=== PATIENT | female | born 1980 | race Caucasian/White ===

== ENCOUNTER 2023-08-28 09:00 | Outpatient (CLI) | payer BC, SELFPAY ==
--- NOTE | 2023-08-28 09:15 | CRLHL7_ITS ---
For Patients: As a result of the Century Cures Act, medical imaging exams and procedure reports are released immediately into your electronic medical record. You may view this report before your referring provider. If you have questions, please contact your health care provider. INDICATION: ABNORMAL UTERINE AND VAGINAL BLEEDING COMPARISON: none TECHNIQUE: 2D mi scale and color Doppler images were acquired of the pelvis using a transabdominal and transvaginal approach. FINDINGS: Sonographic images demonstrate a normal size and smooth outer contour of the uterus. Uterus measures 8.6 cm in length by 4.0 cm in AP diameter by 4.2 cm in transverse dimension. The myometrium has a normal uniform echotexture. The endometrial lining appears normal and measures 4 mm in composite thickness. The right ovary measures 3.3 x 2.0 x 2.7 cm in size and the left ovary measures 2.8 x 1.9 x 1.7 cm. The ovaries demonstrate normal arterial and venous blood flow on color Doppler analysis. There are no suspicious fluid collections within the cul-de-sac. IMPRESSION: Normal pelvic ultrasound. Dictated by Talib Welsh MD @ 08/28/2023 9:53:25 AM (Electronically Signed)
== END 2023-08-28 09:01 | disposition home or self-care (01) ==
LOC: US 09:00
PROVIDERS: PCP Family Medicine; Visit Provider Obstetrics & Gynecology
DX: N93.9 Abnormal uterine and vaginal bleeding, unspecified (principal)
CPT/HCPCS: 76830; 76856

== ENCOUNTER 2023-10-06 09:35 | Day surgery (SDC) | payer BC, SELFPAY ==
[2023-10-06] VITALS (18 sets, daily range): BP systolic 98–131; BP diastolic 55–100; PULSE 61–88; RESP 12–17; TEMP 35.7–36.6; O2SAT 93–100; BMI 21.6
[2023-10-06] MEDS: LACTATED RINGERS 1000 ML 1,000 ML 100 ML IV ×2 (09:55→12:03)
[2023-10-06] MEDS: SODIUM CHLORIDE 0.9 % (FLUSH) 10 ML SYRINGE IVF ×3 (09:55→23:16)
[2023-10-06 10:15] LABS: Ur HCG Qualitative* Negative (Negative)
[2023-10-06 10:17] LABS: Hemoglobin* 13.6 gm/dL (12.0-16.0)
[2023-10-06 10:32] LABS: Creatinine* 0.6 mg/dL (0.5-1.5); Est. Creatinine Clearance* 101.04; Estimated Glomerular Filt Rate 115 ml/min
--- NOTE | 2023-10-06 10:34 | P.GYNHP_ITS ---
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 Plan to proceed with total vaginal hysterectomy, bilateral salpingectomy and cystoscopy today. Please see my consult note for complete details. She is s/p H&P with pre-op clearnace by Dr. England on 09/22. Past medical history notable for F5L heterozygosity with history of an extensive lower extremity SVT while on OCPs. She notes no interval updates to her health history. No chest pain, dyspnea, dizziness/lightheadedness, nausea/vomiting, bowel or bladder concerns. LMP 10/05/23. Her PCP did not make recommendations regarding perioperative ACO. I did calculate a Caprini score, for which Ms. Chauhan is high risk for VTE. In light of this, I recommend mechanical and pharmacologic prophylaxis intra-op (SCD, heparin) and post-procedure prophylactic ACO with lovenox x 2 weeks. She expressed understanding and is agreeable to plan. 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 Physical Exam: Vital signs: Temp Pulse Resp BP Pulse Ox O2 Del Method 97.8 F 78 16 131/100 H 100 Room Air 10/06/23 10:04 10/06/23 10:04 10/06/23 10:04 10/06/23 10:04 10/06/23 10:04 10/06/23 10:04 Narrative: Physical exam: General: No acute distress Psych: Alert and oriented x3, full affect Heart: Regular rate and rhythm, no murmur rub or gallop Lungs: Clear to auscultation bilaterally 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 Chauhan is a 43yo seen for pre-op visit prior to total vaginal hysterectomy, bilateral salpingectomy (if identified, s/p tubal) and cystoscopy. Procedures indicated in the setting of abnormal uterine bleeding status post endometrial ablation, preoperative evaluation has included a pelvic ultrasound, EMB not performed secondary to inability to access cavity on a prior attempt at hysteroscopy. We again reviewed risks and benefits of surgery. Specifically, reviewed risk of underlying hyperplasia and/or malignancy given inability to sample the endometrium. She is fortunately low risk for this overall within normal pelvic ultrasound. We reviewed risks specific to surgery including conversion to laparoscopic/open, bleeding, infection, damage to surrounding structures. Additionally reviewed complications of anesthesia/surgery itself including VTE, heart attack and stroke. In total, written consent was re-obtained. All questions answered. - Preop hemoglobin and creatinine reviewed, within normal limits. Urine test negative. - Admit for observation overnight on med/surg unit - Plan intraoperative Ancef for infection prophylaxis - SCDs and heparin 5000 units or VTE prophylaxis - Pending surgical blood loss, plan for Lovenox 12 hours postoperatively to be continued for 2 weeks in the setting of high risk for VTE by Cabrini score (and factor 5 Leiden with history of extensive SVT)
[2023-10-06] MEDS: SCOPOLAMINE 1 MG/3 DAY PATCH 1 PATCH TRANSDERMA (11:13)
[2023-10-06] MEDS: CEFAZOLIN 2 GM INJ IVP (11:59)
[2023-10-06] MEDS: HEPARIN 5,000 UNIT/0.5 ML INJ 5000 UNIT SUBCUT (12:01)
[2023-10-06] MEDS: BUPIVACAINE 0.5% 30 ML INJECTION (12:14)
--- NOTE | 2023-10-06 12:23 | W.ANESCHARGE ---
Anesthesia Charges Start Date/Time Anesthesia Start Date: 10/06/23 Anesthesia Start Time: 11:38 Stop Date/Time Anesthesia Stop Date: 10/06/23 Anesthesia Stop Time: 13:30
--- NOTE | 2023-10-06 13:25 | PM.PROC ---
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 Cruz with the patient's surgery. I aided in dissection, visualization, and obtaining hemostasis. Please see Dr. Cruz's note for complete details.
--- NOTE | 2023-10-06 13:30 | W.ANESCHARGE ---
Anesthesia Charges Start Date/Time Anesthesia Start Date: 10/06/23 Anesthesia Start Time: 11:38 Stop Date/Time Anesthesia Stop Date: 10/06/23 Anesthesia Stop Time: 13:30
--- NOTE | 2023-10-06 13:32 | P.GYNPRC_ITS ---
Procedure Note Time Seen by Provider: 13:15 Date of procedure: 10/06/23 Pre-op diagnosis: Abnormal uterine bleeding s/p endometrial ablation Procedure: Total vaginal hysterectomy Bilateral salpingectomy Barrientos Culdoplasty Cystoscopy Anesthesia: MAC and regional Complications: None. Surgeon: Hemal Cruz MD Production Team Advisor: Helen Irene Estimated blood loss (mL): 130 IV fluids (mL): 1,500 Urine Output (mL): 400 Pathology: specimen obtained, sent to pathology Condition: stable Disposition: observation Findings: Unremarkable cervix, uterus, bilateral fallopian tubes and ovaries Normal diagnostic cystoscopy, with bilateral ureteral jets both before and after Barrientos culdoplasty Procedure Description: The patient was taken to the operating room and anesthesia was induced. She was prepped and draped in the dorsal lithotomy position with yellow fin stirrups. Surgical pause was performed. Pre-operative ancef and heparin were noted to have been administered. The bladder was emptied via straight catheterization. Weighted speculum and Larissa retractors were placed, cervix easily visualized. The cervix was grasped with two tenacula. The corners of the vagina at 3 and 9 o'clock were marked and a circumferential incision was made around the cervix. The bladder was reflected from the uterus with sharp dissection and the peritoneal cavity was somewhat difficult to access. Attention was turned to posterior vagina, where the posterior vaginal epithelium was deflected inferiorly and Bello scissors were utilized to sharply enter the posterior cul-de-sac. Long weighted retractor was introduced. The bilateral uterosacral ligaments were sequentially clamped, cut, and suture ligated. Attention returned to the anterior colpotomy, where pickups were utilized to gently deflect down the peritoneal reflection and scissors were utilized to enter the peritoneal cavity. Right angle retractor was utilized to confirm entrance to the anterior peritoneal cavity. Larissa was introduced. Larissa was swung laterally to palpate the left ureter. The cardinal ligament was then sequentially clamped, cut, and ligated with 0 vicryl, being palpably free of the ureter. The same produced was carried out on the right. The uterus was then inverted, and the utero-ovarian ligaments were clamped, cut, and ligated. The specimen was then removed vaginally and sent to Pathology for analysis. The small bowel was packed into the upper pelvis with a lap sponge. Excellent hemostasis of the pedicles were noted. The ovaries were inspected and noted to be grossly normal in appearance. The fallopian tube remnants were readily identified bilaterally to the fimbriae- where they were clamped, cut, and suture ligated at the base. The tubes were removed vaginally. The ovaries were left in situ. Small oozing from the left ovary was noted, addressed with cautery. Excellent hemostasis noted. Cystoscopy performed, where bilateral ureteral jets were noted. A Barrientos culdoplasty was performed with 2-0 Vicryl, plicating the uterosacral ligaments. Repeat cystoscopy performed, where bilateral ureteral jets were again noted. The entire bladder was examined, with negative diagnostic cystoscopy. The vagina was closed in the usual interrupted fashion with 0 Vicryl. The cuff was carefully inspected, and hemostasis was assured. The patient tolerated the procedure well. Quantitative blood loss: 130cc. Debrief completed. Specimens including uterus, cervix and bilateral fallopian tubes were sent for pathologic evaluation. 1.5L of crystalloid administered throughout case, 400mL of UOP. She was taken to recovery in stable condition.
[2023-10-06] MEDS: HYDROmorphone 0.5 mg/0.5 ml inj IVP (13:40)
[2023-10-06] MEDS: ACETAMINOPHEN 325 MG TABLET 650 MG PO (16:55)
[2023-10-06] MEDS: KETOROLAC 30 MG/ML inj IVP ×2 (18:09→23:14)
[2023-10-06] MEDS: OXYCODONE 5 MG TABLET PO (19:42)
[2023-10-07 00:47] LABS: Hemoglobin* 11.8 gm/dL (12.0-16.0)
[2023-10-07 01:24] LABS: Creatinine* 0.5 mg/dL (0.5-1.5); Est. Creatinine Clearance* 121.25; Estimated Glomerular Filt Rate 120 ml/min
[2023-10-07] MEDS: ENOXAPARIN 40 MG/0.4 ML INJ SUBCUT (02:07)
[2023-10-07] MEDS: OXYCODONE 5 MG TABLET PO ×2 (02:09→07:52)
[2023-10-07 03:00] VITALS: BP 131/90; PULSE 76; RESP 16; TEMP 36.3; O2SAT 98
--- NOTE | 2023-10-07 06:51 | PC.NURSE ---
Shift note: Pt is doing well with SBA. Alert and oriented. No bleeding per vaginum. Vitally stable. Hemoglobin>11. Tolerated regular diet very well. Pain level has been stable at 3-5.
--- NOTE | 2023-10-07 07:35 | P.DS_ITS ---
DS: Providers Provider Time Seen by Provider: 07:10 Date Seen: 10/07/23 Primary care physician: Chi England MD Attending Physician on discharge: Flower Cruz MD FIBRE COMPOSITE TECHNICIAN-Discharge Summary Hospital Course Hospital Course Narrative: Patient is a 43 year old admitted on 10/06 for post-operative care. Indication for surgery: Abnormal uterine bleeding s/p endometrial ablation, inability to sample endometrium Intraoperative findings were unremarkable. Normal cervix, uterus, tubes and ovaries. She had an uncomplicated surgery. Postoperative course has been uneventful. Vitals have been stable, adequate UOP. She has remained afebrile, normal VS. Today, on postoperative day 1, she reports the pain is primarily well controlled. Her greatest pain is in her back, exacerbation of her chronic back pain that she attributes to immobility during surgery itself. Pain is controlled on oral regimen of tylenol, NSAIDs and oxycodone PRN. She notes pelvic pressure from vag pack, improved after removal. She has been able to ambulate Without difficulty. She is tolerating regular diet. She is passing flatus. Garay catheter remains in place due to vaginal packing - now plan to remove this as pack was removed on my exam. No calf pain, erythema, swelling. Time Spent with Patient Time attestation: Total time spent providing and/or coordinating discharge services. FIBRE COMPOSITE TECHNICIAN - Exam Physical Exam: Vital signs: Temp Pulse Resp BP Pulse Ox O2 Del Method 97.3 F L 76 16 131/90 H 98 Room Air 10/07/23 03:00 10/07/23 03:00 10/07/23 03:00 10/07/23 03:00 10/07/23 03:00 10/07/23 03:00 Narrative: General: No acute distress Psych: Alert and oriented x 3, full affect HEENT: Normocephalic, atraumatic Abdomen:Soft, non-distended. Tender to palpation in bilateral lower quadrants, consistent with post-op state. No rebound or guarding. Pelvic exam: External genital exam WNL. Vaginal packing removed intact, scant serosanginous output. AM labs notable for: Hgb 11.8 Cr 0.5 FIBRE COMPOSITE TECHNICIAN - DS: Data Data Completed and Pending Labs on day of discharge: Labs from last 24 hours 10/07/23 10/06/23 10/06/23 00:40 10:05 10:00 Hgb 11.8 L 13.6 Creatinine 0.5 0.6 Estimated Creat Clear 121.25 101.04 Estimated GFR 120 115 Urine HCG, Qual Negative Procedures Procedures: Procedures Operation Date: 10/06/23 11:20 Actual Procedure Side Surgeon p Vaginal Hysterectomy, bilateral salingectomy, cystoscopy Not Applicable Flower Cruz MD Discharge Plan Discharge Disposition: Home, Self-Care Discharging Surgeon: Flower Cruz Follow-Up Appointment: 2 and 6 week post-op visits Prescriptions: New oxycodone 5 mg Tablet 5 mg PO Q4H PRN (Reason: Moderate Pain) Qty: 15 0RF enoxaparin 40 mg/0.4 mL Syringe 40 mg subcut DAILY 13 Days Qty: 5 0RF Rx Instructions: Take at approximately 9pm daily Activity Level: No strenuous activity Discharge Diet: Regular Additional Instructions: Lifting restrictions: Please do not lift more than 15lbs for 6 weeks Sexual restriction: Pelvic rest for 6 weeks Pain control: Over the counter Motrin 600 mg by mouth every six hours on a full stomach for pain as needed Over the counter Acetaminophen 1000 mg by mouth every six hours on a full stomach for pain as needed Oxycodone 5mg every 4 hours as needed for breakthrough pain Please call/present to the ED with: - Increasing or severe abdominal pain - Fevers/chills - Inability to tolerate solid/liquids by mouth, recurrent nausea/vomiting - Signs or symptoms of a blood clot - calf pain, redness, swelling, chest pain, shortness of breath, dizziness/lightheadedness VTE Prophylaxis: - You are recommended to utilize lovenox 40mg daily for prevention of blood clots, for 2 weeks. Your first dose was given at 2am on 10/07, plan to continue with daily use at bedtime (9pm). Forms: Work/School Release Follow-up: Chi England MD [Primary Care Provider] - Discharge Orders: Discharge Order (Routine); Ordered 10/07/23 Ordered By: Flower Cruz
[2023-10-07 08:16] VITALS: BP 129/89; PULSE 68; RESP 16; TEMP 36.6; O2SAT 98
== END 2023-10-07 11:29 | disposition home or self-care (01) ==
LOC: OR 09:36 → MEDSURG 09:39
PROVIDERS: PCP Family Medicine; Visit Provider Obstetrics & Gynecology
PROC: (CPT 58263; principal; 2023-10-06 11:00)
DX: N93.8 Other specified abnormal uterine and vaginal bleeding (principal); D68.51 Activated protein C resistance; M54.9 Dorsalgia, unspecified
CPT/HCPCS: 58263; 00944; 36415; 81025; 82565; 85018; 88307; A9270; J0330; J0665; J0690; J1100; J1170; J1200; J1630; J1644; J1650; J1885; J2405; J2704; J3010; J3475; J3490; J7120